=== PATIENT | male | born 1940 | race Asian ===

== ENCOUNTER → 2019-01-20 | Outpatient (CLI) | payer MEDICARE, OTHER ==
[~2019-01-20] VITALS: Ht 160 cm; Wt 64.0 kg
[~2019-01-20] MED LIST: ADV250 IH; ALLO100T PO; ASPI-728 PO; ATOR40TA28 PO; AUD NEB; CALC0.253 PO; CEFO1I IV; FERR325T22 PO; FLUT1BLS IH; FURO20TA4 PO; INFLUENZA VIRUS VACCINE QVS 2019-20 (3YR+)/PF 60 MCG/0.5 ML SYRINGE IM ONE; IPRNEB IH; METO-408 PO; METO25 PO; MOM30 PO; NIFE10 PO; ONDA-104 PO; PANT40TA25 PO; TIOT185 IH; TIOT4MIS2 PO
[2019-01-20 10:39] VITALS: BP 127/80
== END | disposition home or self-care (01) ==
LOC: SRCNTR 10:39
PROVIDERS: ATTEND Internal Medicine Critical Care Medicine
DX: Z23 Encounter for immunization (principal); I12.9 Hypertensive chronic kidney disease with stage 1 through stage 4 chronic kidney disease, or unspecified chronic kidney disease; N18.9 Chronic kidney disease, unspecified; I48.91 Unspecified atrial fibrillation; I25.10 Atherosclerotic heart disease of native coronary artery without angina pectoris; J44.9 Chronic obstructive pulmonary disease, unspecified; Z87.891 Personal history of nicotine dependence; Z90.79 Acquired absence of other genital organ(s)
CPT/HCPCS: 90471; 90686; G0463

== ENCOUNTER → 2019-04-29 | Outpatient (CLI) | payer MEDICARE, OTHER ==
[~2019-04-29] MED LIST changes: -ATOR40TA28 PO; -CEFO1I IV; -FLUT1BLS IH; -INFLUENZA VIRUS VACCINE QVS 2019-20 (3YR+)/PF 60 MCG/0.5 ML SYRINGE IM ONE; -MOM30 PO; -ONDA-104 PO
== END | disposition home or self-care (01) ==
LOC: RADMN 15:39
PROVIDERS: ATTEND Internal Medicine Critical Care Medicine
DX: I25.10 Atherosclerotic heart disease of native coronary artery without angina pectoris (principal); I70.8 Atherosclerosis of other arteries; K57.30 Diverticulosis of large intestine without perforation or abscess without bleeding; M47.814 Spondylosis without myelopathy or radiculopathy, thoracic region; J98.11 Atelectasis; J98.4 Other disorders of lung; J40 Bronchitis, not specified as acute or chronic; J43.9 Emphysema, unspecified
CPT/HCPCS: 71250

== ENCOUNTER 2020-10-27 10:25 | Inpatient (IN) | payer MEDICARE, OTHER ==
[~2020-10-27] VITALS: Ht 162.6 cm; Wt 67.6 kg
[~2020-10-27 10:25] MED LIST changes: +ASPI-1450 PO; -ASPI-728 PO; +PANT-31 PO; -PANT40TA25 PO; +PANT40TA54 PO
[2020-10-27 11:30] VITALS: BP 109/67
[2020-10-27] MEDS ORDERED: MELATONIN 5 MG TABLET PO PRN (12:15)
[2020-10-27] MEDS ORDERED: OxyCODONE HCL 5 MG IR TABLET PO PRN (12:15)
[2020-10-27] MEDS ORDERED: ALBUTEROL SULFATE HFA 90 MCG/PUFF 8 GM INHALER IH PRN (12:15)
[2020-10-27 16:04] VITALS: BP 123/72
[2020-10-27] MEDS: DOCUSATE SODIUM 100 MG CAPSULE PO SCH ×2 (20:57→21:00)
[2020-10-27] MEDS: SENNA 187 MG TABLET PO SCH ×2 (20:57→21:00)
[2020-10-27] MEDS: FLUTICASONE/SALMETEROL 250-50 MCG/INH INHALER [60] IH SCH (20:57)
[2020-10-27] MEDS: METOPROLOL TARTRATE 25 MG TABLET PO SCH (20:57)
[2020-10-27] MEDS ORDERED: ASPIRIN 325 MG DR TABLET PO SCH (21:00)
[2020-10-27] MEDS ORDERED: DOXYCYCLINE HYCLATE 100 MG TABLET PO SCH (21:00)
[2020-10-27] MEDS: PANTOPRAZOLE SODIUM 40 MG DR TABLET PO SCH (21:01)
[2020-10-27] MEDS: OXYGEN THERAPY IH SCH (21:02)
[2020-10-27] MEDS ORDERED: DOXYCYCLINE HYCLATE 100 MG TABLET PO ONE (21:30)
[2020-10-27 22:04] VITALS: BP 127/70
[2020-10-28 04:00] VITALS: BP 133/71
[2020-10-28] MEDS: TIOTROPIUM BROMIDE 18 MCG/INH HANDIHALER [5] IH SCH (08:27)
[2020-10-28] MEDS: FLUTICASONE/SALMETEROL 250-50 MCG/INH INHALER [60] IH SCH ×2 (08:28→21:11)
[2020-10-28] MEDS: ETHYL ALCOHOL 62% ANTISEPTIC NASAL INHALANT 0.6 ML AMPUL NASAL SCH ×2 (08:30→21:11)
[2020-10-28] MEDS: PredniSONE 20 MG TABLET PO SCH (08:34)
[2020-10-28] MEDS: DOCUSATE SODIUM 100 MG CAPSULE PO SCH ×2 (08:36→21:10)
[2020-10-28] MEDS: NIFEdipine 60 MG ER TABLET PO SCH (08:37)
[2020-10-28] MEDS: PANTOPRAZOLE SODIUM 40 MG DR TABLET PO SCH ×2 (08:40→21:10)
[2020-10-28] MEDS: METOPROLOL TARTRATE 25 MG TABLET PO SCH ×2 (08:40→21:10)
[2020-10-28] MEDS: ALLOPURINOL 100 MG TABLET PO SCH (08:41)
[2020-10-28 09:00] VITALS: BP 123/66
[2020-10-28] MEDS ORDERED: FUROSEMIDE 20 MG TABLET PO SCH (09:00)
[2020-10-28] MEDS: CHOLECALCIFEROL (VIT D3) 2,000 UNITS [50 MCG] TABLET PO SCH (10:07)
[2020-10-28 12:34] LABS: HEMATOCRIT 34.6 % (41-53); HEMOGLOBIN 11.2 g/dL (13.5-17.5); MEAN CORPUSCULAR HEMOGLOBIN 31.1 pg (26.0-34.0); MEAN CORPUSCULAR HGB CONC 32.2 G/dL (31.0-37.0); MEAN CORPUSCULAR VOLUME 97 fL (80-100); PLATELET COUNT (AUTO) 206 K/uL (150-450); RED BLOOD CELL COUNT(AUTO) 3.59 MIL/uL (4.50-5.90)
[2020-10-28] MEDS: OXYGEN THERAPY IH SCH ×2 (12:40→21:11)
[2020-10-28] MEDS: ASPIRIN 81 MG DR TABLET PO SCH ×2 (12:40→21:10)
[2020-10-28 12:46] LABS: ALBUMIN 2.6 g/dL (3.4-5.0); BILIRUBIN,TOTAL 0.9 mg/dL (0.1-1.0); CALCIUM, TOTAL 9.3 mg/dL (8.8-10.5); CREATININE 2.57 mg/dL (0.60-1.30); TOTAL PROTEIN, SERUM 6.8 g/dL (6.4-8.2)
[2020-10-28 12:49] LABS: POTASSIUM 6.2 mmol/L (3.5-5.1)
[2020-10-28] MEDS ORDERED: SODIUM POLYSTYRENE SULFONATE 15 GM/60 ML SUSPENSION BOTTLE PO ONE (13:00)
[2020-10-28 13:08] LABS: BAND NEUTROPHILS % (MANUAL) 5 % (0-5); BASOPHILS % (MANUAL) 1 % (0-2); MONOCYTES % (MANUAL) 3 % (2-9); SEGMENTED NEUTROPHILS % 91 % (40-70)
[2020-10-28] MEDS ORDERED: SODIUM CHLORIDE 0.9% 1,000 ML IV SCH (13:15)
[2020-10-28 15:40] LABS: APPEARANCE,URINE CLEAR (CLEAR); BILIRUBIN,URINE NEGATIVE (NEGATIVE); GLUCOSE, URINE (UA) NEGATIVE (NEGATIVE); KETONES,URINE NEGATIVE (NEGATIVE); LEUKOCYTE ESTERASE ,URINE NEGATIVE (NEGATIVE); NITRATE,URINE NEGATIVE (NEGATIVE); OCCULT BLOOD,URINE SMALL (NEGATIVE); PROTEIN,URINE NEGATIVE (NEGATIVE); UROBILINOGEN,URINE 0.2 mg/dL (<=1.0)
[2020-10-28 16:01] VITALS: BP 135/76
[2020-10-28 16:05] LABS: BACTERIA,URINE None Seen /HPF (None Seen); RBC,URINE 0-2 /HPF (0-2); SQUAMOUS EPITHELIAL CELL,UR None Seen /LPF (None Seen); WBC,URINE 0-2 /HPF (0-5)
[2020-10-28] MEDS: FUROSEMIDE 40 MG/4 ML VIAL IVP SCH (17:39)
[2020-10-28] MEDS: SENNA 187 MG TABLET PO SCH (21:10)
[2020-10-28 21:29] VITALS: BP 110/63
[2020-10-29] MEDS: OXYGEN THERAPY IH SCH ×2 (07:55→21:12)
[2020-10-29] MEDS: FLUTICASONE/SALMETEROL 250-50 MCG/INH INHALER [60] IH SCH ×2 (07:55→21:11)
[2020-10-29] MEDS: TIOTROPIUM BROMIDE 18 MCG/INH HANDIHALER [5] IH SCH (07:56)
[2020-10-29] MEDS: ASPIRIN 81 MG DR TABLET PO SCH ×2 (07:59→21:20)
[2020-10-29] MEDS: DOCUSATE SODIUM 100 MG CAPSULE PO SCH ×2 (07:59→21:12)
[2020-10-29] MEDS: NIFEdipine 60 MG ER TABLET PO SCH (08:02)
[2020-10-29] MEDS: ATORVASTATIN CALCIUM 20 MG TABLET PO SCH (08:02)
[2020-10-29] MEDS: ALLOPURINOL 100 MG TABLET PO SCH (08:02)
[2020-10-29] MEDS: PredniSONE 20 MG TABLET PO SCH (08:02)
[2020-10-29] MEDS: ETHYL ALCOHOL 62% ANTISEPTIC NASAL INHALANT 0.6 ML AMPUL NASAL SCH ×2 (08:05→21:15)
[2020-10-29] MEDS: FUROSEMIDE 40 MG/4 ML VIAL IVP SCH (08:06)
[2020-10-29] MEDS: CHOLECALCIFEROL (VIT D3) 2,000 UNITS [50 MCG] TABLET PO SCH (09:00)
[2020-10-29] MEDS: METOPROLOL TARTRATE 25 MG TABLET PO SCH ×2 (11:22→21:17)
[2020-10-29] MEDS: PANTOPRAZOLE SODIUM 40 MG DR TABLET PO SCH ×2 (11:22→21:13)
[2020-10-29 13:38] LABS: BASOPHILS % (AUTO) 0.1 % (0.0-2.0); EOSINOPHILS % (AUTO) 0 % (1.0-6.0); HEMATOCRIT 32.8 % (41-53); HEMOGLOBIN 10.6 g/dL (13.5-17.5); LYMPHOCYTES # (AUTO) 0.4 K/uL (1.0-4.8); LYMPHOCYTES % (AUTO) 1.5 % (22.0-44.0); MEAN CORPUSCULAR HEMOGLOBIN 30.7 pg (26.0-34.0); MEAN CORPUSCULAR HGB CONC 32.2 G/dL (31.0-37.0); MEAN CORPUSCULAR VOLUME 96 fL (80-100); MONOCYTES # (AUTO) 0.5 K/uL (0.1-1.0); MONOCYTES % (AUTO) 1.9 % (2.0-9.0); NEUTROPHILS # (AUTO) 24.3 K/uL (1.8-7.7); PLATELET COUNT (AUTO) 205 K/uL (150-450); RED BLOOD CELL COUNT(AUTO) 3.44 MIL/uL (4.50-5.90); RED CELL DISTRIBUTION WIDTH 14.9 % (11.5-14.5)
[2020-10-29 13:41] LABS: NEUTROPHILS % (AUTO) 96.5 % (40.0-70.0)
[2020-10-29 13:56] LABS: CALCIUM, TOTAL 8.2 mg/dL (8.8-10.5); CREATININE 2.75 mg/dL (0.60-1.30); MAGNESIUM 2.3 mg/dL (1.80-2.40); PHOSPHORUS 5.9 mg/dL (2.5-4.9); POTASSIUM 4.4 mmol/L (3.5-5.1)
[2020-10-29 14:01] LABS: SODIUM,URINE RANDOM 101 mmol/l (20-110); UREA NITROGEN,URINE RANDOM 344 mg/dL (350-1000)
[2020-10-29 14:07] LABS: PROTEIN,URINE RANDOM < 6 mg/dL (0-11.9)
[2020-10-29 14:34] LABS: APPEARANCE,URINE RPT (CLEAR); BILIRUBIN,URINE NEGATIVE (NEGATIVE); GLUCOSE, URINE (UA) NEGATIVE (NEGATIVE); KETONES,URINE NEGATIVE (NEGATIVE); LEUKOCYTE ESTERASE ,URINE NEGATIVE (NEGATIVE); NITRATE,URINE NEGATIVE (NEGATIVE); OCCULT BLOOD,URINE MODERATE (NEGATIVE); PROTEIN,URINE NEGATIVE (NEGATIVE); UROBILINOGEN,URINE 0.2 mg/dL (<=1.0)
[2020-10-29 14:54] VITALS: BP 104/66
[2020-10-29 15:31] LABS: RBC,URINE 0-2 /HPF (0-2); WBC,URINE 0-2 /HPF (0-5)
[2020-10-29 15:32] LABS: BACTERIA,URINE None Seen /HPF (None Seen)
[2020-10-29 16:00] VITALS: BP 98/47
[2020-10-29 21:00] VITALS: BP 107/71
[2020-10-29] MEDS: APIXABAN 2.5 MG TABLET PO SCH (21:12)
[2020-10-29] MEDS: SENNA 187 MG TABLET PO SCH (21:13)
[2020-10-30 06:02] VITALS: BP 104/61
[2020-10-30] MEDS: FLUTICASONE/SALMETEROL 250-50 MCG/INH INHALER [60] IH SCH ×2 (08:27→20:05)
[2020-10-30] MEDS: OXYGEN THERAPY IH SCH ×2 (08:27→20:09)
[2020-10-30] MEDS: TIOTROPIUM BROMIDE 18 MCG/INH HANDIHALER [5] IH SCH (08:28)
[2020-10-30] MEDS: ETHYL ALCOHOL 62% ANTISEPTIC NASAL INHALANT 0.6 ML AMPUL NASAL SCH ×2 (08:29→20:05)
[2020-10-30] MEDS: DOCUSATE SODIUM 100 MG CAPSULE PO SCH ×2 (08:31→20:06)
[2020-10-30] MEDS: ASPIRIN 81 MG DR TABLET PO SCH ×2 (08:33→20:06)
[2020-10-30] MEDS: ALLOPURINOL 100 MG TABLET PO SCH (08:34)
[2020-10-30] MEDS: PANTOPRAZOLE SODIUM 40 MG DR TABLET PO SCH ×2 (08:34→20:07)
[2020-10-30] MEDS: METOPROLOL TARTRATE 25 MG TABLET PO SCH ×2 (08:34→20:06)
[2020-10-30] MEDS: CHOLECALCIFEROL (VIT D3) 2,000 UNITS [50 MCG] TABLET PO SCH (08:34)
[2020-10-30] MEDS: APIXABAN 2.5 MG TABLET PO SCH ×2 (08:34→20:06)
[2020-10-30] MEDS: NIFEdipine 60 MG ER TABLET PO SCH (08:34)
[2020-10-30] MEDS: ATORVASTATIN CALCIUM 20 MG TABLET PO SCH (08:34)
[2020-10-30] MEDS: PredniSONE 20 MG TABLET PO SCH (08:35)
[2020-10-30 10:23] LABS: BASOPHILS % (AUTO) 0.1 % (0.0-2.0); EOSINOPHILS % (AUTO) 0.1 % (1.0-6.0); HEMATOCRIT 37.7 % (41-53); HEMOGLOBIN 12.2 g/dL (13.5-17.5); LYMPHOCYTES % (AUTO) 4.6 % (22.0-44.0); MEAN CORPUSCULAR HEMOGLOBIN 31.1 pg (26.0-34.0); MEAN CORPUSCULAR HGB CONC 32.2 G/dL (31.0-37.0); MEAN CORPUSCULAR VOLUME 97 fL (80-100); MONOCYTES # (AUTO) 1.3 K/uL (0.1-1.0); MONOCYTES % (AUTO) 6.2 % (2.0-9.0); NEUTROPHILS # (AUTO) 18.5 K/uL (1.8-7.7); RED BLOOD CELL COUNT(AUTO) 3.91 MIL/uL (4.50-5.90); RED CELL DISTRIBUTION WIDTH 15.1 % (11.5-14.5)
[2020-10-30 10:31] LABS: CALCIUM, TOTAL 8.5 mg/dL (8.8-10.5); CREATININE 2.55 mg/dL (0.60-1.30); MAGNESIUM 2.3 mg/dL (1.80-2.40); PHOSPHORUS 5.4 mg/dL (2.5-4.9); POTASSIUM 3.8 mmol/L (3.5-5.1)
[2020-10-30 11:00] LABS: PLATELET COUNT (AUTO) 268 K/uL (150-450)
[2020-10-30] MEDS: FUROSEMIDE 20 MG TABLET PO SCH ×2 (12:14→20:05)
[2020-10-30 13:14] VITALS: BP 96/59
[2020-10-30 16:21] VITALS: BP 113/67
[2020-10-30 20:00] VITALS: BP 117/69
[2020-10-30] MEDS: SENNA 187 MG TABLET PO SCH (20:05)
[2020-10-30] MEDS: 0.9% SODIUM CHLORIDE 10 ML SYRINGE IVP SCH (23:59)
[2020-10-31 00:05] VITALS: BP 108/78
[2020-10-31 05:46] LABS: BASOPHILS % (AUTO) 0.1 % (0.0-2.0); EOSINOPHILS % (AUTO) 0.2 % (1.0-6.0); HEMOGLOBIN 11.1 g/dL (13.5-17.5); LYMPHOCYTES % (AUTO) 5.7 % (22.0-44.0); MEAN CORPUSCULAR HEMOGLOBIN 30.9 pg (26.0-34.0); MEAN CORPUSCULAR HGB CONC 32.5 G/dL (31.0-37.0); MEAN CORPUSCULAR VOLUME 95 fL (80-100); MONOCYTES # (AUTO) 1.3 K/uL (0.1-1.0); MONOCYTES % (AUTO) 7.5 % (2.0-9.0); NEUTROPHILS # (AUTO) 15.3 K/uL (1.8-7.7); PLATELET COUNT (AUTO) 212 K/uL (150-450); RED BLOOD CELL COUNT(AUTO) 3.58 MIL/uL (4.50-5.90); RED CELL DISTRIBUTION WIDTH 14.5 % (11.5-14.5)
[2020-10-31 06:01] LABS: NEUTROPHILS % (AUTO) 86.5 % (40.0-70.0)
[2020-10-31 06:05] LABS: ALBUMIN 2.1 g/dL (3.4-5.0); BILIRUBIN,TOTAL 0.7 mg/dL (0.1-1.0); CALCIUM, TOTAL 7.7 mg/dL (8.8-10.5); CREATININE 2.19 mg/dL (0.60-1.30); MAGNESIUM 2.4 mg/dL (1.80-2.40); POTASSIUM 3.6 mmol/L (3.5-5.1); TOTAL PROTEIN, SERUM 5.5 g/dL (6.4-8.2)
[2020-10-31] MEDS: FLUTICASONE/SALMETEROL 250-50 MCG/INH INHALER [60] IH SCH ×2 (08:10→20:27)
[2020-10-31] MEDS: TIOTROPIUM BROMIDE 18 MCG/INH HANDIHALER [5] IH SCH (08:10)
[2020-10-31] MEDS: ASPIRIN 81 MG DR TABLET PO SCH ×2 (08:13→20:27)
[2020-10-31] MEDS: CHOLECALCIFEROL (VIT D3) 2,000 UNITS [50 MCG] TABLET PO SCH (08:13)
[2020-10-31] MEDS: ETHYL ALCOHOL 62% ANTISEPTIC NASAL INHALANT 0.6 ML AMPUL NASAL SCH ×2 (08:13→20:32)
[2020-10-31] MEDS: FUROSEMIDE 20 MG TABLET PO SCH (08:16)
[2020-10-31] MEDS: APIXABAN 2.5 MG TABLET PO SCH ×2 (08:17→20:27)
[2020-10-31] MEDS: PANTOPRAZOLE SODIUM 40 MG DR TABLET PO SCH ×2 (08:21→20:27)
[2020-10-31] MEDS: ATORVASTATIN CALCIUM 20 MG TABLET PO SCH (08:21)
[2020-10-31] MEDS: METOPROLOL TARTRATE 25 MG TABLET PO SCH ×2 (08:21→20:28)
[2020-10-31] MEDS: ALLOPURINOL 100 MG TABLET PO SCH (08:21)
[2020-10-31] MEDS: OXYGEN THERAPY IH SCH ×2 (08:34→20:27)
[2020-10-31 09:00] VITALS: BP 118/67
[2020-10-31] MEDS ORDERED: NIFEdipine 30 MG ER TABLET PO SCH (09:00)
[2020-10-31] MEDS: 0.9% SODIUM CHLORIDE 10 ML SYRINGE IVP SCH ×3 (09:13→23:39)
[2020-10-31] MEDS: DOCUSATE SODIUM 100 MG CAPSULE PO SCH ×2 (09:14→20:27)
[2020-10-31 16:57] VITALS: BP 137/75
[2020-10-31 20:23] VITALS: BP 127/56
[2020-10-31] MEDS: SENNA 187 MG TABLET PO SCH (20:27)
[2020-10-31] MEDS: FUROSEMIDE 20 MG/2 ML VIAL IVP SCH (20:27)
[2020-11-01 00:04] VITALS: BP 124/70
[2020-11-01 08:18] LABS: EOSINOPHILS % (AUTO) 0.6 % (1.0-6.0); HEMATOCRIT 35.9 % (41-53); HEMOGLOBIN 11.6 g/dL (13.5-17.5); LYMPHOCYTES # (AUTO) 0.9 K/uL (1.0-4.8); LYMPHOCYTES % (AUTO) 5.6 % (22.0-44.0); MEAN CORPUSCULAR HEMOGLOBIN 30.9 pg (26.0-34.0); MEAN CORPUSCULAR HGB CONC 32.2 G/dL (31.0-37.0); MEAN CORPUSCULAR VOLUME 96 fL (80-100); MONOCYTES # (AUTO) 1.2 K/uL (0.1-1.0); MONOCYTES % (AUTO) 7.2 % (2.0-9.0); NEUTROPHILS # (AUTO) 14.3 K/uL (1.8-7.7); PLATELET COUNT (AUTO) 263 K/uL (150-450); RED BLOOD CELL COUNT(AUTO) 3.74 MIL/uL (4.50-5.90); RED CELL DISTRIBUTION WIDTH 14.9 % (11.5-14.5)
[2020-11-01 08:23] LABS: NEUTROPHILS % (AUTO) 86.6 % (40.0-70.0)
[2020-11-01 08:31] LABS: ALBUMIN 2.4 g/dL (3.4-5.0); BILIRUBIN,TOTAL 0.9 mg/dL (0.1-1.0); CALCIUM, TOTAL 7.8 mg/dL (8.8-10.5); CREATININE 2.23 mg/dL (0.60-1.30); POTASSIUM 3.3 mmol/L (3.5-5.1); TOTAL PROTEIN, SERUM 6.2 g/dL (6.4-8.2)
[2020-11-01] MEDS: OXYGEN THERAPY IH SCH ×2 (08:44→21:14)
[2020-11-01] MEDS: 0.9% SODIUM CHLORIDE 10 ML SYRINGE IVP SCH ×3 (08:45→23:00)
[2020-11-01 09:00] VITALS: BP 130/75
[2020-11-01] MEDS: FUROSEMIDE 20 MG/2 ML VIAL IVP SCH (09:00)
[2020-11-01] MEDS: ALLOPURINOL 100 MG TABLET PO SCH (09:00)
[2020-11-01] MEDS: METOPROLOL TARTRATE 25 MG TABLET PO SCH ×2 (09:00→21:14)
[2020-11-01] MEDS: FLUTICASONE/SALMETEROL 250-50 MCG/INH INHALER [60] IH SCH ×2 (09:00→21:14)
[2020-11-01] MEDS: CHOLECALCIFEROL (VIT D3) 2,000 UNITS [50 MCG] TABLET PO SCH (09:00)
[2020-11-01] MEDS: TIOTROPIUM BROMIDE 18 MCG/INH HANDIHALER [5] IH SCH (09:00)
[2020-11-01] MEDS: DOCUSATE SODIUM 100 MG CAPSULE PO SCH ×2 (09:00→21:14)
[2020-11-01] MEDS: ASPIRIN 81 MG DR TABLET PO SCH ×2 (09:00→21:14)
[2020-11-01] MEDS: APIXABAN 2.5 MG TABLET PO SCH ×2 (09:00→21:14)
[2020-11-01] MEDS: PANTOPRAZOLE SODIUM 40 MG DR TABLET PO SCH ×2 (09:00→21:14)
[2020-11-01] MEDS: ETHYL ALCOHOL 62% ANTISEPTIC NASAL INHALANT 0.6 ML AMPUL NASAL SCH ×2 (09:00→21:13)
[2020-11-01] MEDS: POTASSIUM CHL 10 MEQ/WATER 50 ML IV SCH ×5 (11:38→16:20)
[2020-11-01] MEDS ORDERED: SODIUM CHLORIDE 0.9% 100 ML ONE (15:05)
[2020-11-01] MEDS: LEVOFLOXACIN 750 MG TABLET PO SCH (15:19)
[2020-11-01 16:00] VITALS: BP 106/64
[2020-11-01 21:00] VITALS: BP 127/75
[2020-11-01] MEDS: SENNA 187 MG TABLET PO SCH (21:14)
[2020-11-01] MEDS: ACETAMINOPHEN 325 MG TABLET PO PRN (21:34)
[2020-11-02] MEDS: 0.9% SODIUM CHLORIDE 10 ML SYRINGE IVP SCH ×3 (08:22→23:01)
[2020-11-02] MEDS: OXYGEN THERAPY IH SCH ×2 (08:22→21:06)
[2020-11-02] MEDS: TIOTROPIUM BROMIDE 18 MCG/INH HANDIHALER [5] IH SCH ×2 (08:24→10:29)
[2020-11-02] MEDS: DOCUSATE SODIUM 100 MG CAPSULE PO SCH ×2 (08:24→21:05)
[2020-11-02] MEDS: ASPIRIN 81 MG DR TABLET PO SCH ×2 (08:24→21:05)
[2020-11-02] MEDS: FLUTICASONE/SALMETEROL 250-50 MCG/INH INHALER [60] IH SCH ×2 (08:24→21:05)
[2020-11-02] MEDS: ETHYL ALCOHOL 62% ANTISEPTIC NASAL INHALANT 0.6 ML AMPUL NASAL SCH ×2 (08:24→21:05)
[2020-11-02] MEDS: METOPROLOL TARTRATE 25 MG TABLET PO SCH ×2 (08:24→21:05)
[2020-11-02] MEDS: APIXABAN 2.5 MG TABLET PO SCH ×2 (08:25→21:05)
[2020-11-02] MEDS: CHOLECALCIFEROL (VIT D3) 2,000 UNITS [50 MCG] TABLET PO SCH (08:25)
[2020-11-02] MEDS: PANTOPRAZOLE SODIUM 40 MG DR TABLET PO SCH ×2 (08:25→21:05)
[2020-11-02] MEDS: ALLOPURINOL 100 MG TABLET PO SCH (08:25)
[2020-11-02 08:31] VITALS: BP 125/74
[2020-11-02] MEDS: ACETAMINOPHEN 325 MG TABLET PO PRN (08:31)
[2020-11-02 11:53] LABS: BASOPHILS % (AUTO) 0.1 % (0.0-2.0); EOSINOPHILS % (AUTO) 0.7 % (1.0-6.0); HEMOGLOBIN 10.2 g/dL (13.5-17.5); LYMPHOCYTES # (AUTO) 0.7 K/uL (1.0-4.8); LYMPHOCYTES % (AUTO) 4.7 % (22.0-44.0); MEAN CORPUSCULAR VOLUME 97 fL (80-100); MONOCYTES # (AUTO) 1.2 K/uL (0.1-1.0); MONOCYTES % (AUTO) 7.7 % (2.0-9.0); NEUTROPHILS # (AUTO) 13.4 K/uL (1.8-7.7); PLATELET COUNT (AUTO) 215 K/uL (150-450); RED CELL DISTRIBUTION WIDTH 14.4 % (11.5-14.5)
[2020-11-02 11:54] LABS: NEUTROPHILS % (AUTO) 86.8 % (40.0-70.0)
[2020-11-02 12:02] LABS: CALCIUM, TOTAL 8.3 mg/dL (8.8-10.5); CREATININE 2.19 mg/dL (0.60-1.30); POTASSIUM 4.9 mmol/L (3.5-5.1)
[2020-11-02 12:20] LABS: C-REACTIVE PROTEIN QUANT 2.21 mg/dL (0.00-0.30); POTASSIUM 4.9 mmol/L (3.5-5.1)
[2020-11-02 16:17] VITALS: BP 134/61
[2020-11-02 20:58] VITALS: BP 144/69
[2020-11-02] MEDS: SENNA 187 MG TABLET PO SCH (21:05)
[2020-11-03] VITALS: BP 130/73
[2020-11-03 07:12] VITALS: BP 139/77
[2020-11-03] MEDS: ACETAMINOPHEN 325 MG TABLET PO PRN ×2 (07:12→20:24)
[2020-11-03] MEDS: OXYGEN THERAPY IH SCH ×2 (07:13→20:24)
[2020-11-03] MEDS: 0.9% SODIUM CHLORIDE 10 ML SYRINGE IVP SCH ×3 (07:13→23:37)
[2020-11-03] MEDS: DOCUSATE SODIUM 100 MG CAPSULE PO SCH ×2 (07:54→20:23)
[2020-11-03] MEDS: PANTOPRAZOLE SODIUM 40 MG DR TABLET PO SCH ×2 (07:55→20:22)
[2020-11-03] MEDS: LEVOFLOXACIN 750 MG TABLET PO SCH (07:55)
[2020-11-03] MEDS: METOPROLOL TARTRATE 25 MG TABLET PO SCH ×2 (07:55→20:23)
[2020-11-03] MEDS: ETHYL ALCOHOL 62% ANTISEPTIC NASAL INHALANT 0.6 ML AMPUL NASAL SCH ×2 (07:55→20:22)
[2020-11-03] MEDS: ASPIRIN 81 MG DR TABLET PO SCH ×2 (07:55→20:22)
[2020-11-03] MEDS: APIXABAN 2.5 MG TABLET PO SCH ×2 (07:55→20:22)
[2020-11-03] MEDS: ALLOPURINOL 100 MG TABLET PO SCH (07:55)
[2020-11-03] MEDS: CHOLECALCIFEROL (VIT D3) 2,000 UNITS [50 MCG] TABLET PO SCH (07:55)
[2020-11-03] MEDS: FUROSEMIDE 20 MG/2 ML VIAL IVP SCH (07:56)
[2020-11-03] MEDS: FLUTICASONE/SALMETEROL 250-50 MCG/INH INHALER [60] IH SCH ×2 (07:56→20:22)
[2020-11-03] MEDS: TIOTROPIUM BROMIDE 18 MCG/INH HANDIHALER [5] IH SCH (07:57)
[2020-11-03 14:06] LABS: CALCIUM, TOTAL 8.2 mg/dL (8.8-10.5); CREATININE 1.86 mg/dL (0.60-1.30); MAGNESIUM 2.1 mg/dL (1.80-2.40)
[2020-11-03 16:10] VITALS: BP 137/70
[2020-11-03 20:24] VITALS: BP 139/72
[2020-11-03] MEDS: SENNA 187 MG TABLET PO SCH (20:27)
[2020-11-04 03:30] VITALS: BP 118/63
[2020-11-04 07:38] LABS: CALCIUM, TOTAL 7.8 mg/dL (8.8-10.5); CREATININE 1.91 mg/dL (0.60-1.30); POTASSIUM 4.2 mmol/L (3.5-5.1)
[2020-11-04 08:00] VITALS: BP 135/67
[2020-11-04] MEDS: OXYGEN THERAPY IH SCH ×2 (08:47→20:06)
[2020-11-04] MEDS: 0.9% SODIUM CHLORIDE 10 ML SYRINGE IVP SCH ×3 (08:47→22:03)
[2020-11-04] MEDS: APIXABAN 2.5 MG TABLET PO SCH ×2 (08:48→20:06)
[2020-11-04] MEDS: CHOLECALCIFEROL (VIT D3) 2,000 UNITS [50 MCG] TABLET PO SCH (08:48)
[2020-11-04] MEDS: TIOTROPIUM BROMIDE 18 MCG/INH HANDIHALER [5] IH SCH (08:48)
[2020-11-04] MEDS: METOPROLOL TARTRATE 25 MG TABLET PO SCH ×2 (08:48→20:06)
[2020-11-04] MEDS: ALLOPURINOL 100 MG TABLET PO SCH (08:48)
[2020-11-04] MEDS: PANTOPRAZOLE SODIUM 40 MG DR TABLET PO SCH ×2 (08:48→20:06)
[2020-11-04] MEDS: DOCUSATE SODIUM 100 MG CAPSULE PO SCH ×2 (08:48→20:06)
[2020-11-04] MEDS: ASPIRIN 81 MG DR TABLET PO SCH ×2 (08:48→20:05)
[2020-11-04] MEDS: FLUTICASONE/SALMETEROL 250-50 MCG/INH INHALER [60] IH SCH ×2 (08:48→20:06)
[2020-11-04] MEDS: ETHYL ALCOHOL 62% ANTISEPTIC NASAL INHALANT 0.6 ML AMPUL NASAL SCH ×2 (08:49→20:05)
[2020-11-04] MEDS: FUROSEMIDE 20 MG/2 ML VIAL IVP SCH (08:49)
[2020-11-04 17:09] VITALS: BP 136/74
[2020-11-04 20:03] VITALS: BP 138/76
[2020-11-04] MEDS: SENNA 187 MG TABLET PO SCH (20:06)
[2020-11-04] MEDS: ACETAMINOPHEN 325 MG TABLET PO PRN (20:07)
[2020-11-04 23:02] VITALS: BP 130/71
[2020-11-05 08:03] VITALS: BP 136/74
[2020-11-05] MEDS: OXYGEN THERAPY IH SCH ×2 (09:55→20:58)
[2020-11-05] MEDS: LEVOFLOXACIN 750 MG TABLET PO SCH (10:04)
[2020-11-05] MEDS: FLUTICASONE/SALMETEROL 250-50 MCG/INH INHALER [60] IH SCH ×2 (10:04→20:58)
[2020-11-05] MEDS: ETHYL ALCOHOL 62% ANTISEPTIC NASAL INHALANT 0.6 ML AMPUL NASAL SCH ×2 (10:04→20:58)
[2020-11-05] MEDS: 0.9% SODIUM CHLORIDE 10 ML SYRINGE IVP SCH ×3 (10:04→23:19)
[2020-11-05] MEDS: CHOLECALCIFEROL (VIT D3) 2,000 UNITS [50 MCG] TABLET PO SCH (10:04)
[2020-11-05] MEDS: FUROSEMIDE 20 MG TABLET PO SCH (10:04)
[2020-11-05] MEDS: ALLOPURINOL 100 MG TABLET PO SCH (10:05)
[2020-11-05] MEDS: ASPIRIN 81 MG DR TABLET PO SCH ×2 (10:05→21:00)
[2020-11-05] MEDS: METOPROLOL TARTRATE 25 MG TABLET PO SCH ×2 (10:05→20:58)
[2020-11-05] MEDS: TIOTROPIUM BROMIDE 18 MCG/INH HANDIHALER [5] IH SCH (10:06)
[2020-11-05] MEDS: APIXABAN 2.5 MG TABLET PO SCH ×2 (10:06→20:58)
[2020-11-05] MEDS: DOCUSATE SODIUM 100 MG CAPSULE PO SCH ×2 (10:06→20:58)
[2020-11-05] MEDS: PANTOPRAZOLE SODIUM 40 MG DR TABLET PO SCH ×2 (10:07→20:58)
[2020-11-05 10:57] LABS: BASOPHILS % (AUTO) 1.5 % (0.0-2.0); EOSINOPHILS % (AUTO) 0.9 % (1.0-6.0); HEMATOCRIT 30.6 % (41-53); HEMOGLOBIN 10.2 g/dL (13.5-17.5); LYMPHOCYTES # (AUTO) 0.9 K/uL (1.0-4.8); LYMPHOCYTES % (AUTO) 8.4 % (22.0-44.0); MEAN CORPUSCULAR HEMOGLOBIN 31.7 pg (26.0-34.0); MEAN CORPUSCULAR HGB CONC 33.2 G/dL (31.0-37.0); MEAN CORPUSCULAR VOLUME 95 fL (80-100); MONOCYTES # (AUTO) 0.9 K/uL (0.1-1.0); MONOCYTES % (AUTO) 8.1 % (2.0-9.0); NEUTROPHILS # (AUTO) 8.6 K/uL (1.8-7.7); NEUTROPHILS % (AUTO) 81.1 % (40.0-70.0); RED BLOOD CELL COUNT(AUTO) 3.21 MIL/uL (4.50-5.90)
[2020-11-05 10:58] LABS: PLATELET COUNT (AUTO) 205 K/uL (150-450)
[2020-11-05 14:14] LABS: ALBUMIN 2.3 g/dL (3.4-5.0); BILIRUBIN,TOTAL 0.4 mg/dL (0.1-1.0); C-REACTIVE PROTEIN QUANT 2.4 mg/dL (0.00-0.30); CALCIUM, TOTAL 8.2 mg/dL (8.8-10.5); CREATININE 1.84 mg/dL (0.60-1.30); MAGNESIUM 1.8 mg/dL (1.80-2.40); PHOSPHORUS 2.6 mg/dL (2.5-4.9); POTASSIUM 3.5 mmol/L (3.5-5.1); TOTAL PROTEIN, SERUM 6.1 g/dL (6.4-8.2)
[2020-11-05 16:00] VITALS: BP 128/76
[2020-11-05] MEDS: SENNA 187 MG TABLET PO SCH (20:58)
[2020-11-05 21:04] VITALS: BP 132/84
[2020-11-06] VITALS: BP 143/78
[2020-11-06 08:05] VITALS: BP 128/63
[2020-11-06] MEDS: 0.9% SODIUM CHLORIDE 10 ML SYRINGE IVP SCH ×2 (08:25→16:11)
[2020-11-06] MEDS: ASPIRIN 81 MG DR TABLET PO SCH ×2 (08:25→20:52)
[2020-11-06] MEDS: OXYGEN THERAPY IH SCH ×2 (08:25→20:51)
[2020-11-06] MEDS: TIOTROPIUM BROMIDE 18 MCG/INH HANDIHALER [5] IH SCH (08:26)
[2020-11-06] MEDS: FUROSEMIDE 20 MG TABLET PO SCH (08:26)
[2020-11-06] MEDS: ALLOPURINOL 100 MG TABLET PO SCH (08:26)
[2020-11-06] MEDS: FLUTICASONE/SALMETEROL 250-50 MCG/INH INHALER [60] IH SCH ×2 (08:26→20:52)
[2020-11-06] MEDS: CHOLECALCIFEROL (VIT D3) 2,000 UNITS [50 MCG] TABLET PO SCH (08:27)
[2020-11-06] MEDS: APIXABAN 2.5 MG TABLET PO SCH ×2 (08:27→20:53)
[2020-11-06] MEDS: DOCUSATE SODIUM 100 MG CAPSULE PO SCH ×2 (08:27→20:52)
[2020-11-06] MEDS: METOPROLOL TARTRATE 25 MG TABLET PO SCH ×2 (08:27→20:53)
[2020-11-06] MEDS: PANTOPRAZOLE SODIUM 40 MG DR TABLET PO SCH ×2 (08:27→20:53)
[2020-11-06] MEDS: ETHYL ALCOHOL 62% ANTISEPTIC NASAL INHALANT 0.6 ML AMPUL NASAL SCH ×2 (08:30→20:52)
[2020-11-06 09:30] LABS: CALCIUM, TOTAL 8.1 mg/dL (8.8-10.5); CREATININE 1.88 mg/dL (0.60-1.30); MAGNESIUM 1.8 mg/dL (1.80-2.40); PHOSPHORUS 2.3 mg/dL (2.5-4.9); POTASSIUM 3.5 mmol/L (3.5-5.1)
[2020-11-06] MEDS: SODIUM,POTASSIUM PHOSPHATES POWDER PACKET PO SCH ×2 (13:16→20:53)
[2020-11-06 16:54] VITALS: BP 144/72
[2020-11-06 20:00] VITALS: BP 134/59
[2020-11-06] MEDS: SENNA 187 MG TABLET PO SCH (20:52)
[2020-11-07] MEDS: 0.9% SODIUM CHLORIDE 10 ML SYRINGE IVP SCH ×3 (00:12→15:47)
[2020-11-07 05:30] VITALS: BP 136/62
[2020-11-07 06:07] LABS: BASOPHILS % (AUTO) 0.4 % (0.0-2.0); EOSINOPHILS % (AUTO) 0.9 % (1.0-6.0); HEMATOCRIT 27.2 % (41-53); LYMPHOCYTES # (AUTO) 0.7 K/uL (1.0-4.8); LYMPHOCYTES % (AUTO) 9.2 % (22.0-44.0); MEAN CORPUSCULAR HEMOGLOBIN 31.5 pg (26.0-34.0); MEAN CORPUSCULAR VOLUME 96 fL (80-100); MONOCYTES # (AUTO) 0.9 K/uL (0.1-1.0); MONOCYTES % (AUTO) 11.9 % (2.0-9.0); NEUTROPHILS # (AUTO) 5.9 K/uL (1.8-7.7); NEUTROPHILS % (AUTO) 77.6 % (40.0-70.0); PLATELET COUNT (AUTO) 199 K/uL (150-450); RED BLOOD CELL COUNT(AUTO) 2.85 MIL/uL (4.50-5.90); RED CELL DISTRIBUTION WIDTH 14.5 % (11.5-14.5)
[2020-11-07 06:26] LABS: C-REACTIVE PROTEIN QUANT 2.82 mg/dL (0.00-0.30); CALCIUM, TOTAL 7.5 mg/dL (8.8-10.5); CREATININE 1.66 mg/dL (0.60-1.30); POTASSIUM 3.4 mmol/L (3.5-5.1)
[2020-11-07 08:12] VITALS: BP 154/80
[2020-11-07] MEDS: OXYGEN THERAPY IH SCH ×2 (08:53→20:00)
[2020-11-07] MEDS: FUROSEMIDE 20 MG/2 ML VIAL IVP SCH (08:55)
[2020-11-07] MEDS: FLUTICASONE/SALMETEROL 250-50 MCG/INH INHALER [60] IH SCH ×2 (08:55→20:01)
[2020-11-07] MEDS: TIOTROPIUM BROMIDE 18 MCG/INH HANDIHALER [5] IH SCH (08:55)
[2020-11-07] MEDS: ASPIRIN 81 MG DR TABLET PO SCH ×2 (08:56→20:01)
[2020-11-07] MEDS: APIXABAN 2.5 MG TABLET PO SCH ×2 (08:56→20:01)
[2020-11-07] MEDS: DOCUSATE SODIUM 100 MG CAPSULE PO SCH ×2 (08:56→20:01)
[2020-11-07] MEDS: ETHYL ALCOHOL 62% ANTISEPTIC NASAL INHALANT 0.6 ML AMPUL NASAL SCH ×2 (08:56→20:01)
[2020-11-07] MEDS: LEVOFLOXACIN 750 MG TABLET PO SCH (08:56)
[2020-11-07] MEDS: PANTOPRAZOLE SODIUM 40 MG DR TABLET PO SCH ×2 (08:57→20:01)
[2020-11-07] MEDS: ALLOPURINOL 100 MG TABLET PO SCH (08:57)
[2020-11-07] MEDS: CHOLECALCIFEROL (VIT D3) 2,000 UNITS [50 MCG] TABLET PO SCH (08:57)
[2020-11-07] MEDS: METOPROLOL TARTRATE 25 MG TABLET PO SCH ×2 (08:58→20:01)
[2020-11-07] MEDS ORDERED: POTASSIUM CHLORIDE 20 MEQ ER TABLET PO ONE (11:45)
[2020-11-07 16:31] VITALS: BP 130/81
[2020-11-07] MEDS: SENNA 187 MG TABLET PO SCH (20:01)
[2020-11-07 20:09] VITALS: BP 136/74
[2020-11-08] VITALS: BP 118/70
[2020-11-08] MEDS: 0.9% SODIUM CHLORIDE 10 ML SYRINGE IVP SCH ×4 (00:09→23:25)
[2020-11-08] MEDS ORDERED: CHOL-35 PO (05:05)
[2020-11-08] MEDS ORDERED: APIX2.5T PO (05:05)
[2020-11-08] MEDS ORDERED: FURO20 PO (05:05)
[2020-11-08] MEDS ORDERED: DOCU-270 PO (05:05)
[2020-11-08] MEDS: OXYGEN THERAPY IH SCH ×2 (07:56→20:10)
[2020-11-08 08:01] VITALS: BP 105/52
[2020-11-08 08:09] LABS: CALCIUM, TOTAL 7.9 mg/dL (8.8-10.5); CREATININE 1.75 mg/dL (0.60-1.30); MAGNESIUM 1.7 mg/dL (1.80-2.40); PHOSPHORUS 2.6 mg/dL (2.5-4.9)
[2020-11-08] MEDS ORDERED: MAGNESIUM OXIDE 400 MG TABLET PO ONE (08:15)
[2020-11-08] MEDS: FUROSEMIDE 20 MG/2 ML VIAL IVP SCH ×2 (08:17→13:01)
[2020-11-08] MEDS: APIXABAN 2.5 MG TABLET PO SCH ×2 (08:18→20:10)
[2020-11-08] MEDS: ASPIRIN 81 MG DR TABLET PO SCH ×2 (08:18→20:10)
[2020-11-08] MEDS: ALLOPURINOL 100 MG TABLET PO SCH (08:18)
[2020-11-08] MEDS: PANTOPRAZOLE SODIUM 40 MG DR TABLET PO SCH ×2 (08:18→20:10)
[2020-11-08] MEDS: METOPROLOL TARTRATE 25 MG TABLET PO SCH ×2 (08:18→20:10)
[2020-11-08] MEDS: CHOLECALCIFEROL (VIT D3) 2,000 UNITS [50 MCG] TABLET PO SCH (08:18)
[2020-11-08] MEDS: DOCUSATE SODIUM 100 MG CAPSULE PO SCH ×2 (08:18→20:10)
[2020-11-08] MEDS: FLUTICASONE/SALMETEROL 250-50 MCG/INH INHALER [60] IH SCH ×2 (08:19→20:11)
[2020-11-08] MEDS: TIOTROPIUM BROMIDE 18 MCG/INH HANDIHALER [5] IH SCH (08:19)
[2020-11-08] MEDS: ACETAMINOPHEN 325 MG TABLET PO PRN (08:20)
[2020-11-08] MEDS: ETHYL ALCOHOL 62% ANTISEPTIC NASAL INHALANT 0.6 ML AMPUL NASAL SCH ×2 (08:40→20:10)
[2020-11-08] MEDS ORDERED: ALBUMIN HUMAN 25%-25GM/100ML 100 ML IV SCH ×2 (09:00→16:00)
[2020-11-08 11:52] LABS: C-REACTIVE PROTEIN QUANT 4.42 mg/dL (0.00-0.30)
[2020-11-08 16:05] VITALS: BP 120/55
[2020-11-08] MEDS ORDERED: LEVO750T68 PO (17:58)
[2020-11-08] MEDS ORDERED: FLUT1BLS9 IH (17:58)
[2020-11-08] MEDS ORDERED: TIOT185 IH (17:58)
[2020-11-08 20:00] VITALS: BP 138/76
[2020-11-08] MEDS: SENNA 187 MG TABLET PO SCH (20:10)
[2020-11-09 00:49] VITALS: BP 133/74
[2020-11-09] MEDS: OXYGEN THERAPY IH SCH (07:43)
[2020-11-09] MEDS: METOPROLOL TARTRATE 25 MG TABLET PO SCH (07:45)
[2020-11-09] MEDS: ASPIRIN 81 MG DR TABLET PO SCH (07:45)
[2020-11-09] MEDS: LEVOFLOXACIN 750 MG TABLET PO SCH (07:45)
[2020-11-09] MEDS: ALLOPURINOL 100 MG TABLET PO SCH (07:46)
[2020-11-09] MEDS: CHOLECALCIFEROL (VIT D3) 2,000 UNITS [50 MCG] TABLET PO SCH (07:46)
[2020-11-09] MEDS: PANTOPRAZOLE SODIUM 40 MG DR TABLET PO SCH (07:46)
[2020-11-09] MEDS: DOCUSATE SODIUM 100 MG CAPSULE PO SCH (07:46)
[2020-11-09] MEDS: APIXABAN 2.5 MG TABLET PO SCH (07:46)
[2020-11-09] MEDS: 0.9% SODIUM CHLORIDE 10 ML SYRINGE IVP SCH (07:47)
[2020-11-09] MEDS: FLUTICASONE/SALMETEROL 250-50 MCG/INH INHALER [60] IH SCH (07:57)
[2020-11-09] MEDS: TIOTROPIUM BROMIDE 18 MCG/INH HANDIHALER [5] IH SCH (07:58)
[2020-11-09 08:02] VITALS: BP 152/74
[2020-11-09] MEDS: FUROSEMIDE 20 MG/2 ML VIAL IVP SCH (08:26)
[2020-11-09] MEDS: ETHYL ALCOHOL 62% ANTISEPTIC NASAL INHALANT 0.6 ML AMPUL NASAL SCH (08:27)
[2020-11-09] MEDS ORDERED: SENN8.6T90 PO (08:48)
[2020-11-09] MEDS ORDERED: ALBUMIN HUMAN 25%-25GM/100ML 100 ML IV SCH (09:00)
== END 2020-11-09 11:00 | disposition home or self-care (01) | DRG 536 ==
LOC: 2WR 10:35
PROVIDERS: ADMIT Physical Medicine & Rehabilitation; ATTEND Physical Medicine & Rehabilitation
DX: S72.001A Fracture of unspecified part of neck of right femur, initial encounter for closed fracture (principal); T84.51XA Infection and inflammatory reaction due to internal right hip prosthesis, initial encounter; R53.81 Other malaise; I50.9 Heart failure, unspecified; D64.9 Anemia, unspecified; I10 Essential (primary) hypertension; M1A.9XX0 Chronic gout, unspecified, without tophus (tophi); H91.90 Unspecified hearing loss, unspecified ear; Z99.81 Dependence on supplemental oxygen; J44.9 Chronic obstructive pulmonary disease, unspecified; W19.XXXA Unspecified fall, initial encounter
CPT/HCPCS: 71046; 71250; 73700; 76770; 80048; 80053; 81001; 82570; 83735; 83880; 84100; 84132; 84156; 84300; 84484; 84540; 85025; 85651; 86140; 87070; 87077; 87081; 87186; 87205; 93005; 93306; 93970; 97110; 97116; 97150; 97163; 97167; 97530; 97535; 99366; A9575; J1940; J3480; J3535; J7050; P9046; 36415-L1; 36415-TC

== ENCOUNTER 2020-12-02 16:56 | Inpatient (IN) | payer MEDICARE, OTHER ==
[~2020-12-02] VITALS: Ht 162.6 cm; Wt 67.6 kg
[~2020-12-02 16:56] MED LIST changes: -ADV250 IH; +APIX2.5T PO; -AUD NEB; -CALC0.253 PO; +CHOL-35 PO; +DOCU-270 PO; -FERR325T22 PO; +FLUT1BLS9 IH; +FURO20 PO; -FURO20TA4 PO; -IPRNEB IH; +LEVO750T68 PO; -METO-408 PO; -NIFE10 PO; -PANT-31 PO; +SENN8.6T90 PO; -TIOT4MIS2 PO
[2020-12-02] MEDS ORDERED: ATOR20TA86 PO (17:08)
[2020-12-02 18:03] LABS: BASOPHILS % (AUTO) 0.3 % (0.0-2.0); EOSINOPHILS % (AUTO) 0.2 % (1.0-6.0); HEMATOCRIT 26.1 % (41-53); HEMOGLOBIN 8.5 g/dL (13.5-17.5); LYMPHOCYTES # (AUTO) 2.1 K/uL (1.0-4.8); LYMPHOCYTES % (AUTO) 19.9 % (22.0-44.0); MEAN CORPUSCULAR HEMOGLOBIN 31.1 pg (26.0-34.0); MEAN CORPUSCULAR HGB CONC 32.4 G/dL (31.0-37.0); MEAN CORPUSCULAR VOLUME 96 fL (80-100); MONOCYTES # (AUTO) 1.3 K/uL (0.1-1.0); MONOCYTES % (AUTO) 12.2 % (2.0-9.0); NEUTROPHILS % (AUTO) 67.4 % (40.0-70.0); PLATELET COUNT (AUTO) 191 K/uL (150-450); RED BLOOD CELL COUNT(AUTO) 2.72 MIL/uL (4.50-5.90); RED CELL DISTRIBUTION WIDTH 15.6 % (11.5-14.5)
[2020-12-02 18:22] LABS: CALCIUM, TOTAL 8.7 mg/dL (8.8-10.5); CREATININE 3.14 mg/dL (0.60-1.30); POTASSIUM 3.3 mmol/L (3.5-5.1)
[2020-12-02 18:30] LABS: ALBUMIN 2.6 g/dL (3.4-5.0); BILIRUBIN,TOTAL 0.6 mg/dL (0.1-1.0); TOTAL PROTEIN, SERUM 7.2 g/dL (6.4-8.2)
[2020-12-02 19:13] LABS: COVID AG,FIA SOURCE NASOPHARYNGEAL
[2020-12-02] MEDS ORDERED: BUMETANIDE 0.25 MG/ML 4 ML VIAL IVP ONE (19:15)
[2020-12-02] MEDS ORDERED: 0.9% SODIUM CHLORIDE 10 ML SYRINGE IVP PRN (20:45)
[2020-12-02] MEDS: BUMETANIDE 0.25 MG/ML 4 ML VIAL IVP SCH (21:00)
[2020-12-02] MEDS ORDERED: DOCUSATE SODIUM 100 MG CAPSULE PO PRN (21:00)
[2020-12-02] MEDS ORDERED: ZOLPIDEM TARTRATE 5 MG TABLET PO PRN (21:00)
[2020-12-02] MEDS ORDERED: ONDANSETRON HCL 4 MG/2 ML VIAL IVP PRN (21:00)
[2020-12-02] MEDS ORDERED: MAGNESIUM HYDROXIDE SUSPENSION 30 ML UDCUP PO PRN (21:00)
[2020-12-02] MEDS ORDERED: BISACODYL 10 MG RECTAL RECTAL SUPPOSITORY PR PRN (21:00)
[2020-12-02] MEDS ORDERED: BUMETANIDE 1 MG TABLET PO ONE (22:45)
[2020-12-02] MEDS: PANTOPRAZOLE SODIUM 40 MG DR TABLET PO SCH (22:56)
[2020-12-02] MEDS: METOPROLOL TARTRATE 25 MG TABLET PO SCH (22:56)
[2020-12-02 23:23] VITALS: BP 156/78
[2020-12-02] MEDS: APIXABAN 2.5 MG TABLET PO SCH (23:28)
[2020-12-03 04:19] VITALS: BP 132/73
[2020-12-03 06:54] LABS: BASOPHILS % (AUTO) 0.3 % (0.0-2.0); EOSINOPHILS % (AUTO) 0.8 % (1.0-6.0); HEMATOCRIT 26.8 % (41-53); HEMOGLOBIN 8.7 g/dL (13.5-17.5); LYMPHOCYTES # (AUTO) 1.3 K/uL (1.0-4.8); LYMPHOCYTES % (AUTO) 14.3 % (22.0-44.0); MEAN CORPUSCULAR HEMOGLOBIN 30.7 pg (26.0-34.0); MEAN CORPUSCULAR HGB CONC 32.4 G/dL (31.0-37.0); MEAN CORPUSCULAR VOLUME 95 fL (80-100); MONOCYTES # (AUTO) 1.2 K/uL (0.1-1.0); MONOCYTES % (AUTO) 13.4 % (2.0-9.0); NEUTROPHILS # (AUTO) 6.4 K/uL (1.8-7.7); NEUTROPHILS % (AUTO) 71.2 % (40.0-70.0); PLATELET COUNT (AUTO) 184 K/uL (150-450); RED BLOOD CELL COUNT(AUTO) 2.83 MIL/uL (4.50-5.90); RED CELL DISTRIBUTION WIDTH 15.5 % (11.5-14.5)
[2020-12-03 07:21] VITALS: BP 139/75
[2020-12-03 07:33] LABS: ALBUMIN 2.6 g/dL (3.4-5.0); BILIRUBIN,TOTAL 0.7 mg/dL (0.1-1.0); CALCIUM, TOTAL 8.4 mg/dL (8.8-10.5); CREATININE 2.58 mg/dL (0.60-1.30); FREE T4 (FREE THYROXINE) 1.48 ng/dL (0.76-1.46); MAGNESIUM 1.8 mg/dL (1.80-2.40); POTASSIUM 3.3 mmol/L (3.5-5.1); TOTAL PROTEIN, SERUM 6.9 g/dL (6.4-8.2)
[2020-12-03 07:50] LABS: URIC ACID 12.6 mg/dL (2.6-7.2)
[2020-12-03] MEDS: TIOTROPIUM BROMIDE 18 MCG/INH HANDIHALER [5] IH SCH (08:16)
[2020-12-03] MEDS: PANTOPRAZOLE SODIUM 40 MG DR TABLET PO SCH ×2 (08:16→20:00)
[2020-12-03] MEDS: CHOLECALCIFEROL (VIT D3) 1,000 UNITS [25 MCG] TABLET PO SCH (08:16)
[2020-12-03] MEDS: METOPROLOL TARTRATE 25 MG TABLET PO SCH ×2 (08:16→20:00)
[2020-12-03] MEDS: ATORVASTATIN CALCIUM 20 MG TABLET PO SCH (08:16)
[2020-12-03] MEDS: APIXABAN 2.5 MG TABLET PO SCH ×2 (08:16→20:00)
[2020-12-03] MEDS: BUMETANIDE 0.25 MG/ML 4 ML VIAL IVP SCH ×3 (08:16→23:42)
[2020-12-03] MEDS: FLUTICASONE/VILANTEROL 200-25 MCG/INH INHALER [14] IH SCH (08:17)
[2020-12-03] MEDS ORDERED: POTASSIUM CHLORIDE 20 MEQ ER TABLET PO ONE (09:30)
[2020-12-03] MEDS ORDERED: EPOETIN ALFA 10,000 UNITS/ML VIAL SQ SCH (10:00)
[2020-12-03 11:44] VITALS: BP 142/68
[2020-12-03 12:15] LABS: % IRON SATURATION 13.1 % (30-44)
[2020-12-03] MEDS ORDERED: PredniSONE 10 MG TABLET PO SCH (13:00)
[2020-12-03] MEDS ORDERED: HYDROCODONE/ACETAMINOPHEN 5-325 MG TABLET PO PRN (13:00)
[2020-12-03] MEDS ORDERED: PredniSONE 20 MG TABLET PO ONE (13:15)
[2020-12-03] MEDS: ACETAMINOPHEN 500 MG TABLET PO PRN (13:49)
[2020-12-03 15:32] VITALS: BP 148/78
[2020-12-03 19:46] VITALS: BP 127/55
[2020-12-03] MEDS ORDERED: BUMETANIDE 1 MG TABLET PO SCH (21:00)
[2020-12-04] VITALS (7 sets, daily range): BP systolic 112–130; BP diastolic 59–99
[2020-12-04 04:31] LABS: APPEARANCE,URINE CLEAR (CLEAR); BILIRUBIN,URINE NEGATIVE (NEGATIVE); GLUCOSE, URINE (UA) NEGATIVE (NEGATIVE); KETONES,URINE NEGATIVE (NEGATIVE); LEUKOCYTE ESTERASE ,URINE NEGATIVE (NEGATIVE); NITRATE,URINE NEGATIVE (NEGATIVE); OCCULT BLOOD,URINE SMALL (NEGATIVE); PROTEIN,URINE NEGATIVE (NEGATIVE); UROBILINOGEN,URINE 0.2 mg/dL (<=1.0)
[2020-12-04 04:35] LABS: BACTERIA,URINE None Seen /HPF (None Seen); RBC,URINE 0-2 /HPF (0-2); WBC,URINE None Seen /HPF (0-5)
[2020-12-04 06:52] LABS: CALCIUM, TOTAL 8.1 mg/dL (8.8-10.5); CREATININE 2.1 mg/dL (0.60-1.30); MAGNESIUM 1.9 mg/dL (1.80-2.40); POTASSIUM 3.6 mmol/L (3.5-5.1)
[2020-12-04 07:10] LABS: PHOSPHORUS 3.3 mg/dL (2.5-4.9)
[2020-12-04 09:17] LABS: BASOPHILS % (AUTO) 0.2 % (0.0-2.0); EOSINOPHILS % (AUTO) 0.3 % (1.0-6.0); HEMATOCRIT 25.7 % (41-53); HEMOGLOBIN 8.4 g/dL (13.5-17.5); LYMPHOCYTES # (AUTO) 1.8 K/uL (1.0-4.8); LYMPHOCYTES % (AUTO) 19.4 % (22.0-44.0); MEAN CORPUSCULAR HGB CONC 32.5 G/dL (31.0-37.0); MEAN CORPUSCULAR VOLUME 95 fL (80-100); MONOCYTES # (AUTO) 1.1 K/uL (0.1-1.0); MONOCYTES % (AUTO) 11.9 % (2.0-9.0); NEUTROPHILS # (AUTO) 6.2 K/uL (1.8-7.7); NEUTROPHILS % (AUTO) 68.2 % (40.0-70.0); PLATELET COUNT (AUTO) 190 K/uL (150-450); RED CELL DISTRIBUTION WIDTH 15.4 % (11.5-14.5)
[2020-12-04] MEDS: METOPROLOL TARTRATE 25 MG TABLET PO SCH ×2 (09:23→20:38)
[2020-12-04] MEDS: CHOLECALCIFEROL (VIT D3) 1,000 UNITS [25 MCG] TABLET PO SCH (09:23)
[2020-12-04] MEDS: BUMETANIDE 0.25 MG/ML 4 ML VIAL IVP SCH ×3 (09:23→23:49)
[2020-12-04] MEDS: PANTOPRAZOLE SODIUM 40 MG DR TABLET PO SCH ×2 (09:24→20:38)
[2020-12-04] MEDS: ATORVASTATIN CALCIUM 20 MG TABLET PO SCH (09:24)
[2020-12-04] MEDS: PredniSONE 10 MG TABLET PO SCH (09:24)
[2020-12-04] MEDS: SPIRONOLACTONE 25 MG TABLET PO SCH (09:24)
[2020-12-04] MEDS: TIOTROPIUM BROMIDE 18 MCG/INH HANDIHALER [5] IH SCH (09:31)
[2020-12-04] MEDS: FLUTICASONE/VILANTEROL 200-25 MCG/INH INHALER [14] IH SCH (09:32)
[2020-12-05 04:40] VITALS: BP 124/73
[2020-12-05 06:51] LABS: BASOPHILS % (AUTO) 0.4 % (0.0-2.0); EOSINOPHILS % (AUTO) 0.3 % (1.0-6.0); HEMATOCRIT 27.7 % (41-53); HEMOGLOBIN 8.8 g/dL (13.5-17.5); LYMPHOCYTES # (AUTO) 2.7 K/uL (1.0-4.8); MEAN CORPUSCULAR HEMOGLOBIN 30.7 pg (26.0-34.0); MEAN CORPUSCULAR HGB CONC 31.7 G/dL (31.0-37.0); MEAN CORPUSCULAR VOLUME 97 fL (80-100); MONOCYTES # (AUTO) 1.2 K/uL (0.1-1.0); MONOCYTES % (AUTO) 11.7 % (2.0-9.0); NEUTROPHILS # (AUTO) 6.4 K/uL (1.8-7.7); NEUTROPHILS % (AUTO) 61.6 % (40.0-70.0); PLATELET COUNT (AUTO) 244 K/uL (150-450); RED BLOOD CELL COUNT(AUTO) 2.87 MIL/uL (4.50-5.90); RED CELL DISTRIBUTION WIDTH 15.7 % (11.5-14.5)
[2020-12-05 07:10] LABS: MAGNESIUM 1.8 mg/dL (1.80-2.40); PHOSPHORUS 3.4 mg/dL (2.5-4.9); POTASSIUM 3.9 mmol/L (3.5-5.1)
[2020-12-05 07:45] VITALS: BP 131/69
[2020-12-05] MEDS: ATORVASTATIN CALCIUM 20 MG TABLET PO SCH (09:47)
[2020-12-05] MEDS: CHOLECALCIFEROL (VIT D3) 1,000 UNITS [25 MCG] TABLET PO SCH (09:47)
[2020-12-05] MEDS: BUMETANIDE 0.25 MG/ML 4 ML VIAL IVP SCH ×3 (09:47→23:42)
[2020-12-05] MEDS: PredniSONE 10 MG TABLET PO SCH (09:47)
[2020-12-05] MEDS: METOPROLOL TARTRATE 25 MG TABLET PO SCH ×2 (09:48→20:34)
[2020-12-05] MEDS: TIOTROPIUM BROMIDE 18 MCG/INH HANDIHALER [5] IH SCH (09:48)
[2020-12-05] MEDS: PANTOPRAZOLE SODIUM 40 MG DR TABLET PO SCH ×2 (09:48→20:34)
[2020-12-05] MEDS: SPIRONOLACTONE 25 MG TABLET PO SCH (09:48)
[2020-12-05] MEDS: FLUTICASONE/VILANTEROL 200-25 MCG/INH INHALER [14] IH SCH (09:49)
[2020-12-05 11:04] VITALS: BP 138/72
[2020-12-05 15:16] VITALS: BP 126/75
[2020-12-05 19:35] VITALS: BP 127/71
[2020-12-05] MEDS: BUDESONIDE 0.5 MG/2 ML NEB SOLUTION NEB SCH (19:50)
[2020-12-05] MEDS: ACETAMINOPHEN 500 MG TABLET PO PRN (20:43)
[2020-12-05 23:47] VITALS: BP 105/61
[2020-12-06 04:55] VITALS: BP 130/79
[2020-12-06 06:54] LABS: BASOPHILS % (AUTO) 0.2 % (0.0-2.0); EOSINOPHILS % (AUTO) 0.6 % (1.0-6.0); HEMATOCRIT 25.4 % (41-53); HEMOGLOBIN 8.3 g/dL (13.5-17.5); LYMPHOCYTES # (AUTO) 1.7 K/uL (1.0-4.8); MEAN CORPUSCULAR HEMOGLOBIN 30.9 pg (26.0-34.0); MEAN CORPUSCULAR HGB CONC 32.7 G/dL (31.0-37.0); MEAN CORPUSCULAR VOLUME 94 fL (80-100); MONOCYTES # (AUTO) 1.1 K/uL (0.1-1.0); MONOCYTES % (AUTO) 12.5 % (2.0-9.0); NEUTROPHILS # (AUTO) 5.9 K/uL (1.8-7.7); NEUTROPHILS % (AUTO) 67.7 % (40.0-70.0); PLATELET COUNT (AUTO) 245 K/uL (150-450); RED BLOOD CELL COUNT(AUTO) 2.69 MIL/uL (4.50-5.90); RED CELL DISTRIBUTION WIDTH 15.4 % (11.5-14.5)
[2020-12-06 07:35] VITALS: BP 123/70
[2020-12-06 07:38] LABS: CALCIUM, TOTAL 8.7 mg/dL (8.8-10.5); CREATININE 2.06 mg/dL (0.60-1.30); MAGNESIUM 1.5 mg/dL (1.80-2.40); PHOSPHORUS 3.1 mg/dL (2.5-4.9); THYROID STIMULATING HORMONE 0.98 uIU/mL (0.36-3.74)
[2020-12-06] MEDS: PredniSONE 10 MG TABLET PO SCH (09:29)
[2020-12-06] MEDS: CHOLECALCIFEROL (VIT D3) 1,000 UNITS [25 MCG] TABLET PO SCH (09:29)
[2020-12-06] MEDS: PANTOPRAZOLE SODIUM 40 MG DR TABLET PO SCH ×2 (09:29→21:29)
[2020-12-06] MEDS: METOPROLOL TARTRATE 25 MG TABLET PO SCH ×2 (09:29→21:29)
[2020-12-06] MEDS: ATORVASTATIN CALCIUM 20 MG TABLET PO SCH (09:29)
[2020-12-06] MEDS ORDERED: POTASSIUM CHLORIDE 20 MEQ ER TABLET PO ONE (09:30)
[2020-12-06] MEDS: FLUTICASONE/VILANTEROL 200-25 MCG/INH INHALER [14] IH SCH (09:41)
[2020-12-06 11:32] VITALS: BP 153/80
[2020-12-06 14:40] VITALS: BP 130/70
[2020-12-06] MEDS: TIOTROPIUM BROMIDE 18 MCG/INH HANDIHALER [5] IH SCH (18:21)
[2020-12-06 20:12] VITALS: BP 131/79
[2020-12-07 00:40] VITALS: BP 139/69
[2020-12-07 04:45] VITALS: BP 145/81
[2020-12-07 07:09] VITALS: BP 151/84
[2020-12-07 07:47] LABS: CALCIUM, TOTAL 8.8 mg/dL (8.8-10.5); CREATININE 1.92 mg/dL (0.60-1.30); POTASSIUM 4.7 mmol/L (3.5-5.1)
[2020-12-07] MEDS: ATORVASTATIN CALCIUM 20 MG TABLET PO SCH (08:20)
[2020-12-07] MEDS: PANTOPRAZOLE SODIUM 40 MG DR TABLET PO SCH (08:20)
[2020-12-07] MEDS: TIOTROPIUM BROMIDE 18 MCG/INH HANDIHALER [5] IH SCH (08:20)
[2020-12-07] MEDS: CHOLECALCIFEROL (VIT D3) 1,000 UNITS [25 MCG] TABLET PO SCH (08:20)
[2020-12-07] MEDS: METOPROLOL TARTRATE 25 MG TABLET PO SCH (08:20)
[2020-12-07] MEDS: PredniSONE 10 MG TABLET PO SCH (08:20)
[2020-12-07] MEDS: FLUTICASONE/VILANTEROL 200-25 MCG/INH INHALER [14] IH SCH (08:20)
[2020-12-07] MEDS: ACETAMINOPHEN 500 MG TABLET PO PRN (08:26)
[2020-12-07] MEDS: BUDESONIDE 0.5 MG/2 ML NEB SOLUTION NEB SCH (08:54)
[2020-12-07 11:10] VITALS: BP 127/68
[2020-12-07 14:54] VITALS: BP 136/85
== END 2020-12-07 15:45 | disposition home health service (06) | DRG 291 ==
LOC: EMS 16:58 → 5N 21:09 → 5S 12-06 17:37
PROVIDERS: ADMIT Internal Medicine Geriatric Medicine; ATTEND Internal Medicine Geriatric Medicine
PROC: 05HD33Z Insertion of Infusion Device into Right Cephalic Vein, Percutaneous Approach (ICD-10-PCS; principal; 2020-12-03)
DX: I13.0 Hypertensive heart and chronic kidney disease with heart failure and stage 1 through stage 4 chronic kidney disease, or unspecified chronic kidney disease (principal); I50.33 Acute on chronic diastolic (congestive) heart failure; N18.4 Chronic kidney disease, stage 4 (severe); N17.9 Acute kidney failure, unspecified; E87.3 Alkalosis; I25.10 Atherosclerotic heart disease of native coronary artery without angina pectoris; J44.9 Chronic obstructive pulmonary disease, unspecified; M10.9 Gout, unspecified; N40.0 Benign prostatic hyperplasia without lower urinary tract symptoms; Z96.649 Presence of unspecified artificial hip joint; I48.91 Unspecified atrial fibrillation; E87.5 Hyperkalemia; E78.5 Hyperlipidemia, unspecified; D63.1 Anemia in chronic kidney disease; Z20.822 Contact with and (suspected) exposure to COVID-19; Z85.46 Personal history of malignant neoplasm of prostate; Z87.11 Personal history of peptic ulcer disease; I25.2 Old myocardial infarction; Z90.79 Acquired absence of other genital organ(s); Z86.16 Personal history of COVID-19; Z87.891 Personal history of nicotine dependence; Z79.899 Other long term (current) drug therapy; Z88.8 Allergy status to other drugs, medicaments and biological substances; Z87.81 Personal history of (healed) traumatic fracture
CPT/HCPCS: 36245; 36569; 71045; 76937; 80048; 80053; 80061; 81001; 82550; 83036; 83540; 83550; 83735; 83880; 84100; 84132; 84439; 84443; 84484; 84550; 85025; 85379; 87040; 93005; 93306; 94640; 97162; 97530; 99291; J0885; J3490; Q9967; 36415-L1; 36415-TC; J7512; U0003; Z7610